=== PATIENT | male | born 1940 | race Caucasian/White ===

== ENCOUNTER 2020-04-08 17:27 | Emergency (ER) | payer MEDICARE, OTHER ==
[2020-04-08 19:30] LABS: HEMOGLOBIN 13.6 gm/dl (14.0-17.5); RED BLOOD COUNT 4.56 M/UL (4.20-5.50); WHITE BLOOD COUNT 9.8 K/UL (4.5-11.0)
[2020-04-08 19:52] LABS: BUN/CREATININE RATIO 10 (0-10)
== END 2020-04-08 22:27 | disposition home or self-care (01) ==
LOC: ER1 17:27
PROVIDERS: Physician Assistant Medical
DX: K40.90 Unilateral inguinal hernia, without obstruction or gangrene, not specified as recurrent (principal); R51.9 Headache, unspecified; Z90.49 Acquired absence of other specified parts of digestive tract; Z88.0 Allergy status to penicillin; Z20.822 Contact with and (suspected) exposure to COVID-19
CPT/HCPCS: 80053; 82272; 85025; 99284; Q9967; U0002